=== PATIENT | female | born 2000 | race Caucasian/White ===

== ENCOUNTER → 2020-06-05 | Outpatient (CLI) | payer OTHER ==
[~2020-06-05] MED LIST: DULA0.75 SQ; FLUO20CA20 PO; FLUT12AE IH; GLIP10TA13 PO; HYDR12.575 PO; HYDR25TA PO; LOSA-73 PO; METF10007 PO; OMEP20TA8 PO
== END ==
LOC: LAB 12:57
PROVIDERS: ATTEND Internal Medicine Gastroenterology
DX: Z01.812 Encounter for preprocedural laboratory examination (principal); Z20.828 Contact with and (suspected) exposure to other viral communicable diseases; R10.13 Epigastric pain
CPT/HCPCS: U0003

== ENCOUNTER → 2020-06-10 | Day surgery (SDC) | payer OTHER ==
[~2020-06-10] MED LIST changes: +IV RINGERS,LACTATED 1000ML 1,000 ML IV SCH; +LIDOCAINE 2% PF 5 ML VIAL. ONE; +PROPOFOL 10 MG/ML (20ML) VIAL. IV ONE
[2020-06-10 08:49] VITALS: BP 145/75
--- NOTE | 2020-06-10 11:17 | CONS ---
DATE OF CONSULTATION: 06/10/2020 REFERRING PHYSICIAN: Dr. Joanna Shepherd. REASON FOR CONSULTATION: Epigastric abdominal pain. HISTORY OF PRESENT ILLNESS: A 20-year-old female with past medical history is significant for epigastric pain, bloating, belching, nausea, which is worsened with eating. Ultrasound and PIPIDA scan did reveal an elevated ejection fraction of 85% with mild symptom reproduction. EGD is recommended to rule out peptic ulcer disease and her celiac prior to possible laparoscopic cholecystectomy. The patient is otherwise without additional new complaints. PAST MEDICAL HISTORY: Abdominal pain and bloating. ALLERGIES: None. MEDICATIONS: Include fluoxetine, glipizide, hydrochlorothiazide, losartan, metformin, omeprazole. Additional past history is significant for hypertension and diabetes. PAST SURGICAL HISTORY: None. FAMILY HISTORY: As stated with breast cancer in grandmother, diabetes in mother, hypertension in mother and grandfather. SOCIAL HISTORY: She is a nonsmoker, social drinker. REVIEW OF SYSTEMS: Per records. PHYSICAL EXAMINATION: GENERAL: Reveals a well-nourished, well-developed female. VITAL SIGNS: Temperature is 98.2, ____, sat is 97%. LUNGS: Clear. CARDIOVASCULAR: Reveals an S1, S2 without S3, S4 or appreciable murmur. ABDOMEN: Reveals a soft abdomen. Normal bowel sounds, without appreciable hepatosplenomegaly. EXTREMITIES: Reveals no cyanosis, clubbing or edema. IMPRESSION: Epigastric abdominal pain with a component of chronic cholecystitis. Recommend upper endoscopy to rule out celiac disease, gastroparesis, peptic ulcer disease and/or gastroesophageal reflux disease. Risks and benefits have been previously discussed and the patient is willing to proceed. KIRSTY MIKE MD DR: [email or web address]/jhoan JOB#: [id number] / [id number]
== END | disposition home or self-care (01) ==
LOC: ENDOS 06:54 → EDUNIT# 08:00
PROVIDERS: ATTEND Internal Medicine Gastroenterology
DX: R10.13 Epigastric pain (principal); K29.50 Unspecified chronic gastritis without bleeding; I10 Essential (primary) hypertension; E66.9 Obesity, unspecified; E11.9 Type 2 diabetes mellitus without complications; F32.9 Major depressive disorder, single episode, unspecified; F41.9 Anxiety disorder, unspecified; Z79.899 Other long term (current) drug therapy; Z79.84 Long term (current) use of oral hypoglycemic drugs; Z72.89 Other problems related to lifestyle
CPT/HCPCS: 43235; 81025; 82962; J2704